=== PATIENT | female | born 1990 | race Caucasian/White ===

== ENCOUNTER 2016-12-18 21:51 | Emergency (ER) | payer MEDICAID ==
[2016-12-18 22:02] VITALS: BP 154/78
--- NOTE | 2016-12-18 22:18 | ERNOTE ---
Abdominal HPI - Narrative Date of Service: 12/18/16 - General Chief Complaint: Abdominal Pain Time Seen by Provider: 12/18/16 21:54 Source: patient - Immun/Allergies/Home Medications Immunizatons: IMMUNIZATION HX Immunizations Up to Date Yes History of Influenza Vaccine Yes Hx Pneumococcal Vaccination No Allergies/Adverse Reactions: Allergies No Known Allergies Allergy (Verified 12/18/16 21:57) Home Medications: HOME MEDICATIONS Venlafaxine HCl [Effexor] 150 mg PO DAILY 11/17/14 [Last Taken Unknown] ALPRAZolam [Xanax] 0.25 mg PO TID PRN 12/18/16 [Last Taken Unknown] Zolpidem Tartrate [Ambien] 5 mg PO DAILY 12/18/16 [Last Taken Unknown] - History of Present Illness Narrative: This is a 26-year-old female who comes to the emergency department complaining of multiple complaints. The patient says that she is here primarily because she has right lower quadrant abdominal pain which has been going on for 2 months but today got worse. She says she had similar pain when she was 19 and was told that she had "cysts on her ovaries" the patient denies having vaginal bleeding or dysuria. Nothing makes the pain worse or makes it better. No change with eating or drinking, movement. The patient says that she has not gotten in to see an AMBULATORY SERVICE REPRESENTATIVE doctor or family doctor "because I don't have one" The patient also reports that she has been having nausea, vomiting, diarrhea for 3 weeks. He says that she will have nausea, vomiting, diarrhea, generalized malaise, and a feeling like she is worn out for one night and then feel better for a couple of days before the cycle repeats. She denies any blood in her stool. She denies any other associated symptoms such as chest pain or shortness of breath. No sick contacts. Patient's last menses was one week ago. She says "I bleed 3 out of every 4 weeks. The patient has an Implanon. The patient says that when she had one and before she didn't have a period at all. When I asked her if she has gotten an appointment to see her OB/ [employer] to see if she can get the recurrent bleeding which seems excessive taken care of, she gets defensive and says that maybe she'll just go to urgent care tomorrow. Review of Systems - Review of Systems Constitutional: Present: weakness, malaise EYE: Present: no symptoms reported ENT: Present: no symptoms reported Respiratory: Present: no symptoms reported Cardiology: Present: no symptoms reported Gastrointestinal/Abdominal: Present: See HPI, nausea, vomiting, diarrhea, abdominal pain Genitourinary: Present: no symptoms reported Musculoskeletal: Present: no symptoms reported Skin: Present: no symptoms reported Neurological: Present: no symptoms reported Endocrine: Present: no symptoms reported Hematologic/Lymphatic: Present: no symptoms reported Psych: Present: no symptoms reported All Other Systems: All systems neg except as marked - Patient's Past Medical History Patient History - Medical: Anxiety, Depression, Other Patient History - Cardiac/Respiratory: Asthma, Bronchitis Patient History - Cancer: No Hx of Cancer Patient History - Surgical Procedures: Other Patient History - Other: None LMP (females 10-50): last week - Social History Living Situations: home Abuse History: No History of abuse Psych History: Hx of Anxiety, Hx of Depression Smoking Status: Current every day smoker Have you smoked in the past 12 months: Yes Do you dip or chew tobacco: No Alcohol Use: none Drug Use: none - Immunizations Immunizations Up to Date: Yes Hx Pneumococcal Vaccination: No History of Influenza Vaccine: Yes Physical Exam - Physical Exam General Appearance: Present: wd/wn, alert, no apparent distress Head Exam: Present: normal inspection, no evidence of injury Ears, Nose, Throat: Present: normal ENT inspection, normal pharynx Neck: Present: normal inspection, nontender Respiratory: Present: no respiratory distress, lungs clear Cardiovascular/Chest: Present: regular rate, rhythm, no murmur Gastrointestinal/Abdominal: Present: other - patient has mild tenderness in the right lower quadrant. No guarding. No rebound. Back Exam: Present: normal inspection, no CVA tenderness Extremity Exam: Present: normal inspection, non-tender, no edema Neurological Exam: Present: alert, oriented Skin Exam: Present: normal color, warm/dry Lymphatic Exam: Present: no adenopathy ED Progress - Vital Signs Patient's Vital Signs:: I have reviewed the patient's vital signs. Vital Signs: Vital Signs 12/18/16 21:58 Temperature 36 C L Pulse Rate 102 H Respiratory 12 Rate Blood Pressure 154/78 O2 Sat by Pulse 100 Oximetry - Progress/Reassessment Chief Complaint: Abdominal Pain Progress Note-Subjective: 12/18/16 22:16 I informed the patient that I was going to get some basic blood tests and a urine test. She asked me how long this would take and I explained that it would take probably 30-45 minutes. I explained that I would treat her with some pain medicine in the meantime. The patient acquiesced. Approximately 5 minutes later the patient walked out of the room and came to me at the computer and said "I don't have time to stay here for all these tests. I 'm just going to go to the walk-in clinic tomorrow". The patient has decision- making ability. Risks and alternatives of leaving AMA are apparent. AMA signed Departure Clinical Impression: Abdominal pain - Departure Disposition: Against medical advice Condition: Undetermined
== END 2016-12-18 22:15 | disposition left against medical advice (07) ==
LOC: ER 21:51
DX: R10.32 Left lower quadrant pain (principal); Z53.29 Procedure and treatment not carried out because of patient's decision for other reasons

== ENCOUNTER 2016-12-23 10:44 | Observation (INO) | payer MEDICAID ==
--- NOTE | 2016-12-23 10:55 | ERNOTE ---
Psychological HPI - General Source: Reports: patient Exam Limitations: Reports: no limitations - Immun/Allergies/Home Medications Allergies/Adverse Reactions: Allergies No Known Allergies Allergy (Verified 12/23/16 11:14) Home Medications: HOME MEDICATIONS ALPRAZolam [Xanax] 1 mg PO BID PRN 12/18/16 [Last Taken 12/23/16 09:30 10 mg] Zolpidem Tartrate [Ambien] 5 mg PO DAILY 12/18/16 [Last Taken 12/23/16 09:30 70 mg] Cyclobenzaprine HCl [Flexeril] 10 mg PO TID PRN 12/23/16 [Last Taken 12/23/16 09 :30 140 mg] - History of Present Illness Narrative: Patient has a history of depression and prior overdose last in 2013. She states that she was doing well for a while, keeping a job, taking care of her children. Her partner was getting back into drugs and she decided to walk away and moved back in with her mom. There has been a lot of conflict, patient denies any particular incident but states that she just doesn't want to live any more and just wants to sleep and not wake up again. Just prior to arrival patient took ativan 1mg #10, flexeril 10mg #14, and ambien 5mg #14 She has a psychiatrist in [place] who is currently on vacation Time Seen by Provider: 12/23/16 10:44 Date (Duration): 12/23/16 Time (Timing): 09:45 Arrived by: Reports: ambulance Intent: Reports: prior thoughts of suicide Mechanism: Reports: overdose Associated Symptoms: Reports: depressed, angry Prior Treament: Reports: recently seen Review of Systems - Review of Systems Constitutional: Absent: recent illness Respiratory: Absent: shortness of breath Cardiology: Absent: chest pain Gastrointestinal/Abdominal: Present: diarrhea - not currently but intermittent frequently. Absent: nausea, vomiting, abdominal pain Genitourinary: Present: other - period three out of four weeks Neurological: Absent: headache Psych: Present: depressed - Patient's Past Medical History Patient History - Medical: Anxiety, Depression, Other Patient History - Cardiac/Respiratory: Asthma, Bronchitis Patient History - Cancer: No Hx of Cancer Patient History - Surgical Procedures: Other Patient History - Other: None - Social History Abuse History: No History of abuse Psych History: Hx of Anxiety, Hx of Depression - Immunizations Immunizations Up to Date: Yes Hx Pneumococcal Vaccination: No History of Influenza Vaccine: Yes Psychological Exam - Exam General Appearance: Present: wd/wn, alert, no apparent distress Head Exam: Present: normal inspection, no evidence of injury Neurological: Present: alert, oriented x 3, depressed affect - and angry Thoughts/Hallucinations: Present: no apparent hallucination Behavior/Eye Contact/Speech: Present: normal speech, belligerent Eye Exam: Normal inspection: bilateral Neck: Present: normal inspection Respiratory: Present: no respiratory distress, normal breath sounds, no accessory muscle use, chest nontender, lungs clear Cardiovascular/Chest: Present: regular rate, rhythm, no murmur Gastrointestinal/Abdominal: Present: normal bowel sounds, nontender, nondistended, soft Extremity Exam: Present: normal inspection - scars but no acute injury Skin Exam: Present: normal color, warm/dry ED Progress - Results and Orders Patient's Lab Results:: I have reviewed the patient's lab results. - Vital Signs Patient's Vital Signs:: I have reviewed the patient's vital signs. - EKG EKG: NSR, other - no acute changes EKG read: Interp. by me - Progress/Reassessment Progress Note-Subjective: 12/23/16 12:32 patient uncooperative, wanting to leave, talked into laying back down in bed by staff, papers for court committal filled out and faxed vitals signs stable 12/23/16 12:[address] Dean, okay to admit, consult Dr Fuentes 12/23/16 12:[address] Fuentes's phone regarding consult Departure Clinical Impression: Overdose Qualifiers: Encounter type: initial encounter Injury intent: intentional self-harm Qualified Code(s): T50.902A - Poisoning by unspecified drugs, medicaments and biological substances, intentional self-harm, initial encounter Depression Qualifiers: Depression Type: unspecified Qualified Code(s): F32.9 - Major depressive disorder, single episode, unspecified - Departure Disposition: [facility] Condition: Stable
[2016-12-23 11:13] LABS: Hemoglobin 12.9 gm/dL (12.5-16.0); Mean Corpuscular Hemoglobin 29.1 pg (27-31); Mean Corpuscular Hgb Conc 33.1 g/dl (32-36); Mean Platelet Volume 11.3 fl (6.0-9.5); Neutrophil # 4.8 K/mm3 (1.3-6.0); Neutrophil % 58.9 % (42-75.0); Platelet Count 168 K/mm3 (150-450); Red Blood Count 4.43 M/mm3 (4.2-5.4); Red Cell Distribution Width 12.2 % (11.5-14.0); White Blood Count 8.1 K/mm3 (4.0-10.5)
[2016-12-23 11:18] LABS: Urine Bilirubin Negative (NEGATIVE); Urine Blood Negative /ul (NEGATIVE); Urine Ketone Negative (NEGATIVE); Urine Nitrite Negative (NEGATIVE); Urine Protein Negative (NEGATIVE); Urine Specific Gravity <=1.005 SP.GR. (1.005-1.010); Urine Urobilinogen Normal (NORMAL); Urine pH 6.5 pH (5.0-7.0)
[2016-12-23 11:28] LABS: Urine Appearance Clear; Urine Bacteria TRACE; Urine Color Pale Yellow; Urine RBC TRACE /hpf (0-5); Urine WBC 0-5 /hpf (0-5)
[2016-12-23 11:33] LABS: ALT 21 U/L (19-67); AST 14 U/L (0-48); Albumin * 3.1 gm/dl (3.4-5.0); Alkaline Phosphatase * 96 U/L (50-170); Anion Gap 7.8 mmol/L (6.8-13.8); BUN/Creatinine Ratio 19.5 (9.0-21.6); Bilirubin, Total 0.3 mg/dL (0.0-1.1); Blood Urea Nitrogen 17 mg/dL (3-23); Ca. Corrected For Albumin 9.3 mg/dL (8.4-10.2); Calcium * 8.9 mg/dL (7.9-10.9); Carbon Dioxide 29.2 mmol/L (24-32.6); Chloride 108 mmol/L (97-106); Glucose * 88 mg/dL (70-110); Salicylate Less than 2.8 mg/dL (2.8-20.0); Sodium 141 mmol/L (132-142); TSH * 0.387 uIU/mL (0.358-3.74); Total Protein 6.7 gm/dL (6.2-8.2)
[2016-12-23 11:34] LABS: Cocaine Ur Negative (NEGATIVE); Urine Barbiturate Negative (NEGATIVE); Urine Opiates Negative (NEGATIVE); Urine PCP Negative (NEGATIVE); Urine THC Negative (NEGATIVE)
[2016-12-23 11:36] LABS: Urine Benzodiazepines Positive (NEGATIVE)
[2016-12-23] MEDS ORDERED: SODIUM BICARBONATE 1 MEQ/ML SYRG IV ONE (14:10)
[2016-12-23] MEDS ORDERED: POTASSIUM CHLORIDE 20 MEQ, SODIUM BICARBONATE 150 MEQ in DEXTROSE 5 % IN WATER 1,000 ML IV ONE ×3 (14:45)
--- NOTE | 2016-12-23 15:44 | HP ---
Chief Complaint - Chief Complaint Date of Service: 12/23/16 Time of Service: 15:44 Chief Complaint: overdose History of Present Illness: Ashia Whitaker, is a 26-year-old female, with previous medical history of bipolar disorder, who was admitted because of overdose today on 12/23/2016. The mother of the patient called EMS and told them that her daughter took 10 tablets of 1 mg Ativan, 14 tablets of 10 mg of Flexeril, 14 tablets of 5 mg Ambien. The patient per ER nurses' notes said that she is " tired of her fucking life and she just wants to sleep and ". She also told them that she thinks of suicide by taking an overdose of medication and or cutting her wrist. She recently from her boyfriend because he was going back into "drugs". She moved back to her mother with her children. She told the ED physician that her last overdose was on 2013 and was doing well for a time until this happened. My history is based on the emergency room notes and nurses notes because the patient is somnolent and sleeping. - Patient's Past Medical History Patient History - Medical: Anxiety, Depression, Other Patient History - Cardiac/Respiratory: Asthma, Bronchitis Patient History - Cancer: No Hx of Cancer Patient History - Surgical Procedures: Other Patient History - Other: None LMP (females 10-50): unknown - Social History Living Situations: home Abuse History: No History of abuse Psych History: Hx of Anxiety, Hx of Depression Alcohol Use: occasionally Drug Use: benzodiazepine - Immunizations Immunizations Up to Date: Yes Hx Pneumococcal Vaccination: No History of Influenza Vaccine: Yes Review Of Systems (GEN) - Review of Systems Misc: All systems neg except as marked - Patieni ssomnolent and sleeping and is not answering my name call, prodding and questions. Immunizations: IMMUNIZATION HX Immunizations Up to Date Yes History of Influenza Vaccine Yes Hx Pneumococcal Vaccination No Allergies/Adverse Reactions: Allergies Allergy/AdvReac Type Severity Reaction Status Date / Time No Known Allergies Allergy Verified 12/23/16 14:03 Home Medications: HOME MEDICATIONS ALPRAZolam [Xanax] 1 mg PO TID PRN 12/18/16 [Last Taken 12/23/16 09:30 10 mg] Zolpidem Tartrate [Ambien] 5 mg PO HS 12/18/16 [Last Taken 12/23/16 09:30 70 mg] Venlafaxine HCl [Effexor Xr] 262.5 mg PO DAILY 12/23/16 [Last Taken Unknown] Exam - Exam Vital Signs: Vital Signs - Last Taken Temp 36.6 C 12/23/16 14:43 Pulse 82 12/23/16 14:43 Resp 16 12/23/16 14:43 BP 125/69 12/23/16 14:43 Pulse Ox 98 12/23/16 14:43 Constitutional: Present: Somnolent Respiratory: Present: normal breath sounds, No rales, No wheezing Cardiovascular/Chest: Present: regular rate, rhythm, no gallop, no JVD, no murmur Abdomen: Present: Normal bowel sounds, soft, nontender, nondistended Extremity: Present: no pedal edema, no calf tenderness Diagnostic Studies: Abnormal Lab Results 12/23/16 Range/Units 14:20 Acetaminophen Less than 0.2 L (10.0-30.0) mcg/mL Laboratory Results WBC 8.1 K/mm3 (4.0-10.5) 12/23/16 11:09 RBC 4.43 M/mm3 (4.2-5.4) 12/23/16 11:09 Hgb 12.9 gm/dL (12.5-16.0) 12/23/16 11:09 Hct 39.0 % (37.0-47.0) 12/23/16 11:09 MCV 88.0 fl (78-100) 12/23/16 11:09 MCH 29.1 pg (27-31) 12/23/16 11:09 MCHC 33.1 g/dl (32-36) 12/23/16 11:09 RDW 12.2 % (11.5-14.0) 12/23/16 11:09 Plt Count 168 K/mm3 (150-450) 12/23/16 11:09 MPV 11.3 fl (6.0-9.5) H 12/23/16 11:09 Immature Gran % (Auto) 0.50 % (0.001-0.429) H 12/23/16 11:09 Immature Gran # (Auto) 0.04 K/mm3 (0.000-0.0310) H 12/23/16 11:09 Neutrophils % 58.9 % (42-75.0) 12/23/16 11:09 Lymphocytes % 29.8 % (20-51) 12/23/16 11:09 Monocytes % 5.5 % (0.0-9) 12/23/16 11:09 Eosinophils % 4.8 % (0.0-3.0) H 12/23/16 11:09 Basophils % 0.5 % (0.0-1.0) 12/23/16 11:09 Nucleated RBC % 0.0 k/mm3 (0-1) 12/23/16 11:09 Neutrophils # 4.8 K/mm3 (1.3-6.0) 12/23/16 11:09 Lymphocytes # 2.4 k/mm3 (1.5-3.5) 12/23/16 11:09 Monocytes # 0.5 k/mm3 (0.0-1.0) 12/23/16 11:09 Eosinophils # 0.4 k/mm3 (0.0-0.7) 12/23/16 11:09 Absolute Basophils 0.0 k/mm3 (0.0-0.1) 12/23/16 11:09 Sodium 141 mmol/L (132-142) 12/23/16 11:09 Plasma Sodium 141 mmol/L (130-142) 12/23/16 11:09 Potassium 4.0 mmol/L (3.4-4.6) 12/23/16 11:09 Chloride 108 mmol/L (97-106) H 12/23/16 11:09 Carbon Dioxide 29.2 mmol/L (24-32.6) 12/23/16 11:09 Anion Gap 7.8 mmol/L (6.8-13.8) 12/23/16 11:09 BUN 17 mg/dL (3-23) 12/23/16 11:09 Creatinine 0.87 mg/dL (0.4-1.4) 12/23/16 11:09 Est GFR (Non-Af Amer) 85 mL/min (60-130) 12/23/16 11:09 BUN/Creatinine Ratio 19.5 (9.0-21.6) 12/23/16 11:09 Random Glucose 88 mg/dL (70-110) 12/23/16 11:09 Calcium 8.9 mg/dL (7.9-10.9) 12/23/16 11:09 Calcium Adj for Albumin 9.3 mg/dL (8.4-10.2) 12/23/16 11:09 Total Bilirubin 0.3 mg/dL (0.0-1.1) 12/23/16 11:09 AST 14 U/L (0-48) 12/23/16 11:09 ALT 21 U/L (19-67) 12/23/16 11:09 Alkaline Phosphatase 96 U/L (50-170) 12/23/16 11:09 Total Protein 6.7 gm/dL (6.2-8.2) 12/23/16 11:09 Albumin 3.1 gm/dl (3.4-5.0) L 12/23/16 11:09 TSH 0.387 uIU/mL (0.358-3.74) 12/23/16 11:09 Urine Color Pale yellow 12/23/16 10:45 Urine Appearance Clear 12/23/16 10:45 Urine pH 6.5 pH (5.0-7.0) 12/23/16 10:45 Ur Specific [place] <=1.005 SP.GR. (1.005-1.010) 12/23/16 10:45 Urine Protein Negative mg/dL (NEGATIVE) 12/23/16 10:45 Urine Glucose (UA) Negative mg/dL (NEGATIVE) 12/23/16 10:45 Urine Ketones Negative mg/dL (NEGATIVE) 12/23/16 10:45 Urine Blood Negative /ul (NEGATIVE) 12/23/16 10:45 Urine Nitrate Negative (NEGATIVE) 12/23/16 10:45 Urine Bilirubin Negative mg/dl (NEGATIVE) 12/23/16 10:45 Urine Urobilinogen Normal EU/dl (NORMAL) 12/23/16 10:45 Ur Leukocyte Esterase 75 /ul (NEGATIVE) H 12/23/16 10:45 Urine RBC Trace /hpf (0-5) 12/23/16 10:45 Urine WBC 0-5 /hpf (0-5) 12/23/16 10:45 Ur Epithelial Cells 5-10 /hpf (0-5) H 12/23/16 10:45 Urine Bacteria Trace (NONE) 12/23/16 10:45 Urine Culture Comments Culture to follow 12/23/16 10:45 Urine HCG, Qual Negative (NEGATIVE) 12/23/16 11:09 Salicylates Less than 2.8 mg/dL (2.8-20.0) L 12/23/16 11:09 Urine Opiates Screen Negative (NEGATIVE) 12/23/16 10:45 Acetaminophen Less than 0.2 mcg/mL (10.0-30.0) L 12/23/16 14:20 Barbiturate Screen Negative (NEGATIVE) 12/23/16 10:45 Ur Phencyclidine Scrn Negative (NEGATIVE) 12/23/16 10:45 Urine Amphetamine Negative (NEGATIVE) 12/23/16 10:45 U Benzodiazepines Scrn Positive (NEGATIVE) H 12/23/16 10:45 Urine Cocaine Screen Negative (NEGATIVE) 12/23/16 10:45 Urine Marijuana (THC) Negative (NEGATIVE) 12/23/16 10:45 Ethyl Alcohol Less than 3.0 mg/dL (0.0-10.0) 12/23/16 11:09 Assessment/Plan - Assessment/Plan (1) Overdose Assessment: polysubstance. poison control following up patient. Problem: Acute Qualifiers: Encounter type: initial encounter Injury intent: intentional self-harm Qualified Code(s): T50.902A - Poisoning by unspecified drugs, medicaments and biological substances, intentional self-harm, initial encounter (2) Suicidal overdose Assessment: will get psych consult. Problem: Acute Qualifiers: Encounter type: initial encounter Qualified Code(s): T50.902A - Poisoning by unspecified drugs, medicaments and biological substances, intentional self- harm, initial encounter (3) Bipolar 1 disorder, depressed Assessment: will get psych consult. Problem: Chronic
--- NOTE | 2016-12-23 16:38 | CONS ---
- Reason for consultation (1) Overdose Date of Service: 12/23/16 Reason for Consultation:: Patient admitted from ER for overdose on several medications. HPI - General Date of Service: 12/23/16 Narrative: Patient seen as a psychiatry consult for suicide attempt via overdose. She is obtunded and not able to give complete answers to questions. Speech is slurred. Will be staying overnight at the least. States that she has a mental health provider in [place] and has been prescribed Effexor and Ativan. She can not clearly say the providers name or location. Source: patient, RN notes reviewed Exam Limitations: clinical condition - History of Present Illness Initial Comments: Very little information obtained due to clinical condition. No family present at this time. Visit lasts approx. 5 minutes. Will follow up with patient tomorrow prior to discharge. Timing/Duration: unsure Allergies/Adverse Reactions: Allergies No Known Allergies Allergy (Verified 12/23/16 14:03) Home Medications: Home Medications Medication Instructions Recorded Last Taken ALPRAZolam [Xanax] 1 mg PO TID PRN 12/18/16 12/23/16 09:30 10 mg Zolpidem Tartrate [Ambien] 5 mg PO HS 12/18/16 12/23/16 09:30 70 mg Venlafaxine HCl [Effexor Xr] 262.5 mg PO DAILY 12/23/16 Unknown - Patient's Past Medical History Patient History - Medical: Anxiety, Depression, Other Patient History - Cardiac/Respiratory: Asthma, Bronchitis Patient History - Cancer: No Hx of Cancer Patient History - Surgical Procedures: Other Patient History - Other: None LMP (females 10-50): unknown - Social History Living Situations: home Abuse History: No History of abuse Psych History: Hx of Anxiety, Hx of Depression Smoking Status: Unknown if ever smoked Have you smoked in the past 12 months: - unknown Alcohol Use: occasionally Drug Use: benzodiazepine - Immunizations Immunizations Up to Date: Yes Hx Pneumococcal Vaccination: No History of Influenza Vaccine: Yes Procedures APPLICATION OF SPLINT (10/10/10) CLOSURE SKIN & SUBCUTANEOUS NEC (09/11/01) Medications - Medications Current Medications: Current Medications Potassium Chloride 20 meq/Sodium Bicarbonate 150 meq/Dextrose/Water 1,160 mls @ 150 mls/hr IV .[id number] ONE Stop: 12/23/16 22:28 Last Admin: 12/23/16 15:00 Dose: 150 mls/hr Review of Systems - Review of Systems Neurological: Present: Emotional Problems Physical Examination - Exam Vital Signs: Vital Signs - Last Taken Temp 36.6 C 12/23/16 15:45 Pulse 81 12/23/16 16:10 Resp 16 12/23/16 16:10 BP 120/71 12/23/16 16:10 Pulse Ox 94 12/23/16 16:10 O2 Oxygen Delivery Method Room Air Constitutional: Present: Obtunded Appearance: Present: disheveled Eye contact: Present: avoids eye contact, decreased rate of speech - Results and Findings: Lab/Microbiology results last 24 hrs: Abnormal/Pending Laboratory Last 24 HRS 12/23/16 14:20 Acetaminophen Less than 0.2 L - Assessments/Findings (1) Overdose Problem: Acute Qualifiers: Encounter type: initial encounter Injury intent: intentional self-harm Qualified Code(s): T50.902A - Poisoning by unspecified drugs, medicaments and biological substances, intentional self-harm, initial encounter
[2016-12-23 20:55] LABS: Magnesium 1.7 mg/dL (1.2-2.8); Phosphorus 2.7 mg/dL (2.2-4.2)
--- NOTE | 2016-12-24 05:54 | PN ---
Subjective - Date and Time Seen Date: 12/24/16 Time: 05:46 Subjective Narrative: Pt seen this am. Is very sleepy and does not respond to any questions. No acute events overnight according to nursing. Seen by Psychiatry 12/23. Is currently court committed and will need to be admitted to a psychiatric unit once medically stable. Objective - Vitals Vitals: Last Vital Signs Temp 36.9 C 12/24/16 03:00 Pulse 74 12/24/16 04:00 Resp 18 12/24/16 03:00 BP 95/46 12/24/16 04:00 Pulse Ox 95 12/24/16 04:00 - Abnormal Lab Findings Abnormal Lab Findings: Abnormal Lab Results 12/23/16 Range/Units 14:20 Acetaminophen Less than 0.2 L (10.0-30.0) mcg/mL - Exam Constitutional: Present: No distress, Other - sleepy, refuses to answer questions. ENT Exam: Present: normal ENT inspection, dry mucous membranes Neck: Present: non-tender, full range of motion, supple Breasts: Present: Exam deferred Respiratory: Present: lungs clear, No rales, No wheezing Cardiovascular/Chest: Present: normal peripheral pulses, regular rate, rhythm, no chest tenderness, no edema Abdomen: Present: Normal bowel sounds, soft, nontender /Rectal: Present: Exam deferred Extremity: Present: normal range of motion, non-tender, normal inspection, no pedal edema Skin Exam: Present: warm/dry, no cyanosis Lymphatic: Present: no adenopathy Neurologic: Present: no motor/sensory deficits, depressed affect Appearance: Present: impaired insight Eye contact: Present: refused to answer Thoughts: Present: no apparent hallucination Assessment/Plan - Problems/Diagnosis (1) Intentional drug overdose Problem: Acute Narrative: Still has VENEER STACKER depression from overdose, but V.S remain stable and is able to protect her airway. EKG shows NSR with QRS duration of 100-110 m/s. Mg and Phos in NR. Will remain on cardiac telemetry monitoring. May need extended observation due to somnolence and long half life of Flexeril; 8-32 hrs (2) Depression Problem: Chronic (3) Bipolar 1 disorder, depressed Problem: Chronic
[2016-12-24 06:06] LABS: Anion Gap 10.5 mmol/L (6.8-13.8); BUN/Creatinine Ratio 14.3 (9.0-21.6); Calcium * 8.5 mg/dL (7.9-10.9); Carbon Dioxide 30.2 mmol/L (24-32.6); Estimated Creat Clear -127.2; Potassium 3.7 mmol/L (3.4-4.6)
[2016-12-24] MEDS ORDERED: NORMAL SALINE 1,000 ML IV PRN (06:46)
[2016-12-24] MEDS ORDERED: SODIUM BICARBONATE 1 MEQ/ML SYRG IV ONE (14:27)
[2016-12-24] MEDS ORDERED: POTASSIUM CHLORIDE 20 MEQ, SODIUM BICARBONATE 150 MEQ in DEXTROSE 5 % IN WATER 1,000 ML IV ONE ×3 (15:00)
--- NOTE | 2016-12-25 12:11 | DS ---
(1) Overdose Problem: Acute Qualifiers: Encounter type: initial encounter Injury intent: intentional self-harm Qualified Code(s): T50.902A - Poisoning by unspecified drugs, medicaments and biological substances, intentional self-harm, initial encounter (2) Suicidal overdose Problem: Acute Qualifiers: Encounter type: initial encounter Qualified Code(s): T50.902A - Poisoning by unspecified drugs, medicaments and biological substances, intentional self- harm, initial encounter (3) Bipolar 1 disorder, depressed Problem: Chronic Description of Stay: Ashia Whitaker, is a 26-year-old female, with previous medical history of bipolar disorder, who was admitted because of overdose today on 12/23/2016. The mother of the patient called EMS and told them that her daughter took 10 tablets of 1 mg Ativan, 14 tablets of 10 mg of Flexeril, 14 tablets of 5 mg Ambien. The patient per ER nurses' notes said that she is " tired of her fucking life and she just wants to sleep and ". She also told them that she thinks of suicide by taking an overdose of medication and or cutting her wrist. She recently from her boyfriend because he was going back into "drugs". She moved back to her mother with her children. She told the ED physician that her last overdose was on 2013 and was doing well for a time until this happened. My history was based on the emergency room notes and nurses notes because the patient was somnolent and sleeping. Poison control recommended NaHCO3 boluses and drips infusion due to her widened QRS complex. Psychiatry followed her up on the floor and per her assessment she is safe to go home to follow up with her next week and then with her psychiatrist in [place]. Procedures Performed: none Discharge Disposition: Home self care Disposition: Home self-care Condition: Stable Discharge Activity: Activity as tolerated Discharge Diet: General/regular food Additional Patient Instructions (free text): Follow up with Shira Johns on Thursday12/29/16 at 1pm. Please fill out packet and take to your appointment. Follow up with her PCP 2 weeks. Complete Home Medications List: Complete Home Medication List: Venlafaxine HCl [Effexor Xr] 262.5 mg PO DAILY 12/23/16
[2016-12-25 12:25] VITALS: BP 105/56
--- NOTE | 2016-12-25 15:08 | PN ---
Subjective - Date and Time Seen Date: 12/25/16 Time: 11:40 Subjective Narrative: Patient states that she is no longer suicidal, wants her medications and wants to go home. Objective Objective Narrative: Patient is still not very talkative, giving 2-3 work replies to questions. Denies any suicidal ideation. States that she is willing to follow up in outpatient psychiatry next week. If unable to see regular provider, can schedule new patient appointment with me in outpatient clinic. Mood continues to be depressed but denies any suicidal thoughts. States that mom is supportive. States that she attempted suicide because she gave up everything because boyfriend's choice to use drugs so she left him. Has inadequate coping skills. - Review of Systems Generalized/Overall Review: Reports: No Symptoms Reported Neurological: Reports: Depressed, Emotional Problems - Vitals Vitals: Last Vital Signs Temp 36.8 C 12/25/16 12:00 Pulse 88 12/25/16 14:00 Resp 18 12/25/16 12:00 BP 105/56 12/25/16 12:00 Pulse Ox 96 12/25/16 12:00 - Exam Constitutional: Present: Alert, Oriented x3, Cooperative Appearance: Present: appropriate appearance, appropriate insight Eye contact: Present: avoids eye contact Thoughts: Present: no apparent hallucination - Is cleared by psychiatry for discharge with follow-up in outpatient within a week. Assessment/Plan - Problems/Diagnosis (1) Overdose Problem: Acute Qualifiers: Encounter type: initial encounter Injury intent: intentional self-harm Qualified Code(s): T50.902A - Poisoning by unspecified drugs, medicaments and biological substances, intentional self-harm, initial encounter
== END 2016-12-25 14:22 | disposition home or self-care (01) ==
LOC: ER 10:44 → SCU 12:38 → INTOOBSV 12:38
PROVIDERS: ADMIT Internal Medicine; ATTEND Internal Medicine
DX: T42.4X2A Poisoning by benzodiazepines, intentional self-harm, initial encounter (principal); T48.1X2A Poisoning by skeletal muscle relaxants [neuromuscular blocking agents], intentional self-harm, initial encounter; T42.6X2A Poisoning by other antiepileptic and sedative-hypnotic drugs, intentional self-harm, initial encounter; F41.8 Other specified anxiety disorders; F32.9 Major depressive disorder, single episode, unspecified
CPT/HCPCS: 36415; 80048; 80053; 80307; 81001; 83735; 84100; 84443; 84703; 85025; 87086; 93005; 96365; 96366; 96375; 96376; 99284; G0378; G0480; G0481